=== PATIENT | male | born 1995 | race Caucasian/White ===

== ENCOUNTER 2016-10-14 23:30 | Emergency (ER) | payer BC, OTHER ==
[~2016-10-14] VITALS: Ht 182.9 cm; Wt 70.0 kg
[2016-10-14 23:31] VITALS: BP 106/66; PULSE 78; RESP 16; TEMP 98.6; O2SAT 99
[2016-10-15] MEDS ORDERED: PARO20TA2 PO (00:53)
[2016-10-15] MEDS ORDERED: DICL75TA PO (01:38)
[2016-10-15] MEDS ORDERED: AMOX500T PO (01:38)
--- NOTE | 2016-10-15 01:41 | PD ---
HPI Chief Complaint: Oral / Dental Pain or Problem Time Seen by Provider: 01:38 Travel History International Travel<30 days: No Contact w/Intl Traveler<30days: No Traveled to known affect area: No History of Present Illness HPI 21-year-old white male presents emergency Department with complaints of dental pain over last 2 weeks. He states that the pain has gotten worse over last few days. The pain is localized to his left lower mandible. He's had problems with his teeth in the past. He is waiting to have dentures. He denies any fever chills. No difficulty swallowing. No shortness of breath or wheezing. Pain is moderate. Worse with chewing. PFSH Past Medical History Medical History: Denies Significant Hx Diminished Hearing: No Tetanus Vaccination: Unknown Influenza Vaccination: No Past Surgical History Surgical History: No Previous Surgery Social History Alcohol Use: No Tobacco Use: No Substance Use: No Allergies-Medications (Allergen,Severity, Reaction): Coded Allergies: No Known Allergies (Unverified , 10/15/16) Reported Meds & Prescriptions Reported Meds & Active Scripts Active Diclofenac Sodium DR (Diclofenac Sodium) 75 Mg Tabdr 75 Mg PO BID Amoxicillin 500 Mg Tab 1,000 Mg PO BID Reported Paroxetine (Paroxetine HCl) 20 Mg Tab 20 Mg PO DAILY Review of Systems Except as stated in HPI: all other systems reviewed are Neg General / Constitutional: No: Fever, Chills Eyes: No: Diploplia, Blurred Vision HENT: Positive: Dental Difficulties, No: Headaches, Vertigo, Earache Cardiovascular: No: Chest Pain or Discomfort, Palpitations Respiratory: No: Cough, Shortness of Breath Gastrointestinal: No: Nausea, Vomiting Physical Exam Narrative GENERAL: Well-developed, well-nourished in no acute distress. Nontoxic appearing. HEAD: Normocephalic, atraumatic. EYES: Pupils equal round and reactive. Extraocular motions intact. No scleral icterus. No injection or drainage. ENT: TMs clear without erythema. The external auditory canals clear. Nose: clear . Posterior pharynx is pink and moist. No tonsillar edema or exudate. Uvula midline. Airway patent. The patient has diffuse periodontal disease. He has multiple decayed teeth the gumline. There is some gingival erythema and edema and pain to the left lower mandible. NECK: Trachea midline.Supple, nontender, moves head freely. No central bony tenderness or spasm. CARDIOVASCULAR: Regular rate and rhythm without murmurs, gallops, or rubs. RESPIRATORY: Clear to auscultation. Breath sounds equal bilaterally. No wheezes , rales, or rhonchi. GASTROINTESTINAL: Abdomen soft, non-tender, nondistended. No hepato-splenomegaly , or palpable masses. No guarding. EXTREMITIES: No clubbing, cyanosis, or edema. No joint tenderness, effusion, or edema noted. BACK: Nontender without deformity or crepitance. No flank tenderness. Data Data Last Documented VS Vital Signs Date Time Temp Pulse Resp B/P Pulse Ox O2 Delivery O2 Flow Rate FiO2 10/15/16 00:54 16 10/14/16 23:31 98.6 78 106/66 99 Orders Amoxicillin (Trimox) (10/15/16 01:45) Acetamin-Hydrocod 325-5 Mg (Holcomb 5-325 (10/15/16 01:45) MDM Medical Decision Making Medical Screen Exam Complete: Yes Emergency Medical Condition: Yes Medical Record Reviewed: Yes Differential Diagnosis MDM: Moderate Differential diagnoses: Dental abscess, dental caries, osteitis, cellulitis Narrative Course This is dental abscess, dental caries Patient is given Lortab 5 mg and amoxicillin 1 g by mouth here in the ER. Diagnosis Primary Impression: Dental abscess Additional Impression: Dental caries Patient Instructions: Narcotic given in the ED, General Instructions Additional Instructions: Rest. Saltwater gargles. Parkman oil on cotton balls. Amoxicillin and diclofenac follow-up with a dentist as soon as possible. And return to the ER if any problems. Med/Other Pt SpecificInfo: Prescription(s) given Scripts Diclofenac Sodium DR 75 Mg Tabdr75 Mg PO BID #20 TAB Prov:Renetta Calle MD 10/15/16 Amoxicillin 500 Mg Tab1,000 Mg PO BID #40 TAB Prov:Renetta Calle MD 10/15/16 Disposition: DISCHARGE HOME Condition: Stable Chele Antony Oct 15, 2016 01:40
[2016-10-15] MEDS ORDERED: AMOXICILLIN (TRIHYDRATE) 500 MG CAP PO ONE (01:45)
[2016-10-15] MEDS ORDERED: ACETAMINOPHEN/HYDROcodone 325 MG/5 MG TAB PO ONE (01:45)
== END 2016-10-15 02:54 | disposition home or self-care (01) ==
LOC: NEPK 23:30
DX: K04.7 Periapical abscess without sinus (principal); K02.9 Dental caries, unspecified
CPT/HCPCS: 99282

== ENCOUNTER 2016-10-26 01:02 | Emergency (ER) | payer BC, OTHER ==
[~2016-10-26] VITALS: Ht 182.9 cm; Wt 63.0 kg
[~2016-10-26 01:02] MED LIST: AMOX500T PO; DICL75TA PO; PARO20TA2 PO
[2016-10-26 01:05] VITALS: BP 102/60; PULSE 82; RESP 16; TEMP 98.1; O2SAT 100
[2016-10-26] MEDS ORDERED: PARO20TA2 PO (01:19)
--- NOTE | 2016-10-26 01:19 | PD ---
HPI Chief Complaint: Medication Refill Request Time Seen by Provider: 01:14 Travel History International Travel<30 days: No Contact w/Intl Traveler<30days: No Traveled to known affect area: No History of Present Illness HPI 21-year-old healthy male with history depression here with complaint of medication refill. Patient takes paroxetine 20 mg daily. He has been on this for 2 years with good effect. Unfortunately he ran out of this approximately 3 days ago. Patient is asymptomatic, requesting medication refill. PFSH Past Medical History Depression: Yes Diminished Hearing: No Social History Alcohol Use: No Tobacco Use: No Substance Use: No Allergies-Medications (Allergen,Severity, Reaction): Coded Allergies: No Known Allergies (Unverified , 10/15/16) Reported Meds & Prescriptions Reported Meds & Active Scripts Active Diclofenac Sodium DR (Diclofenac Sodium) 75 Mg Tabdr 75 Mg PO BID Amoxicillin 500 Mg Tab 1,000 Mg PO BID Reported Paroxetine (Paroxetine HCl) 20 Mg Tab 20 Mg PO DAILY Review of Systems General / Constitutional: No: Fever Psychiatric: Positive: Depression Physical Exam Narrative GENERAL: Well Appearing male in no acute distress SKIN: Focused skin assessment warm/dry. HEAD: Normocephalic. CARDIOVASCULAR: Regular rate and rhythm. RESPIRATORY: No accessory muscle use. MUSCULOSKELETAL: Normal gait NEUROLOGICAL: Awake and alert. Normal speech. PSYCHIATRIC: Appropriate mood and affect; insight and judgment normal. Data Data Last Documented VS Vital Signs Date Time Temp Pulse Resp B/P Pulse Ox O2 Delivery O2 Flow Rate FiO2 10/26/16 01:05 98.1 82 16 102/60 100 Room Air MDM Medical Decision Making Medical Screen Exam Complete: Yes Emergency Medical Condition: Yes Medical Record Reviewed: Yes Differential Diagnosis 21-year-old male with history of depression on paroxetine 20 mg daily off of this 3 days here with medication refill request. Patient is otherwise asymptomatic. Narrative Course Medication refilled, referred to outpatient primary Diagnosis Primary Impression: Depression Qualified Code: F32.9 - Depression, unspecified depression type Additional Impression: Medication refill Referrals: [facility] call for appointment Additional Instructions: Medication as prescribed Med/Other Pt SpecificInfo: Prescription(s) given Scripts Paroxetine 20 Mg Tab20 Mg PO DAILY #30 TAB Ref 0 Prov:Jing Egan MD 10/26/16 Disposition: 01 DISCHARGE HOME Condition: Stable Jing Egan N. MD Oct 26, 2016 01:19
== END 2016-10-26 01:32 | disposition home or self-care (01) ==
LOC: NEPD 01:02
DX: F32.9 Major depressive disorder, single episode, unspecified (principal); Z76.0 Encounter for issue of repeat prescription
CPT/HCPCS: 99281

== ENCOUNTER 2017-01-16 02:09 | Emergency (ER) | payer BC, OTHER ==
[~2017-01-16 02:09] MED LIST changes: -AMOX500T PO
[2017-01-16 02:13] VITALS: BP 102/66; PULSE 75; RESP 16; TEMP 98; O2SAT 100
[2017-01-16] MEDS ORDERED: PARO20TA2 PO (03:17)
--- NOTE | 2017-01-16 03:21 | PD ---
HPI Chief Complaint: Medication Refill Request Time Seen by Provider: 03:18 Travel History International Travel<30 days: No Contact w/Intl Traveler<30days: No Traveled to known affect area: No History of Present Illness HPI 21-year-old white male presents to emergency department requesting a refill of his paroxetine. He states that he ran out this past week. He has been on this for quite some time. He denies any suicidal homicidal ideation. He does not have an appointment to see [employer] operation until the end of the month. PENDING SALE TO [facility] Past Medical History Depression: Yes Diminished Hearing: No Past Surgical History Other Surgery: Yes (mouth reconstruction) Social History Alcohol Use: No Tobacco Use: Yes (ppd) Substance Use: No Allergies-Medications (Allergen,Severity, Reaction): Coded Allergies: No Known Allergies (Unverified , 10/26/16) Reported Meds & Prescriptions Reported Meds & Active Scripts Active Paroxetine (Paroxetine HCl) 20 Mg Tab 20 Mg PO DAILY Diclofenac Sodium DR (Diclofenac Sodium) 75 Mg Tabdr 75 Mg PO BID Review of Systems Except as stated in HPI: all other systems reviewed are Neg Physical Exam Narrative GENERAL: This is a well-nourished, well-developed patient, in no apparent distress. SKIN: No rashes, ecchymoses or lesions. Warm and dry. HEAD: Atraumatic. Normocephalic. EYES: PERRL, EOMI, no discharge or injection. No scleral icterus. EARS: Clear NOSE: Nasal turbinates appear normal. THROAT: Mucosa pink and moist. Airway patent. NECK: Trachea midline. supple, moves head freely. LUNGS: Clear to auscultation. CV: Regular in rhythm. ABDOMEN: Soft nontender. EXT: No clubbing cyanosis or edema. Data Data Last Documented VS Vital Signs Date Time Temp Pulse Resp B/P Pulse Ox O2 Delivery O2 Flow Rate FiO2 01/16/17 02:13 98.0 75 16 102/66 100 Room Air MDM Medical Decision Making Medical Screen Exam Complete: Yes Emergency Medical Condition: Yes Medical Record Reviewed: Yes Differential Diagnosis Differential diagnoses: Med refill, depression, anxiety Narrative Course This is medication refill, depression Diagnosis Primary Impression: Medication refill Additional Impression: depression Patient Instructions: General Instructions Additional Instructions: Rest. Medications as directed. Follow up with [facility] for further refills. Return to the ER for emergencies. Med/Other Pt SpecificInfo: Prescription(s) given Scripts Paroxetine 20 Mg Tab20 Mg PO DAILY #30 TAB Ref 0 Prov:Delfin Fitzgerald MD 01/16/17 Disposition: 01 DISCHARGE HOME Condition: Chele Cooper Jan 16, 2017 03:21
== END 2017-01-16 03:53 | disposition home or self-care (01) ==
LOC: NEPD 02:09
DX: F32.9 Major depressive disorder, single episode, unspecified (principal); F17.210 Nicotine dependence, cigarettes, uncomplicated; Z76.0 Encounter for issue of repeat prescription
CPT/HCPCS: 99281

== ENCOUNTER 2017-03-22 21:20 | Emergency (ER) | payer BC, OTHER ==
[~2017-03-22] VITALS: Ht 182.9 cm; Wt 59.4 kg
[2017-03-22 21:22] VITALS: BP 114/70; PULSE 81; RESP 18; TEMP 98.6; O2SAT 99
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
[2017-03-22] MEDS ORDERED: MAGICADU2 SWISH-SPIT (21:44)
[2017-03-22] MEDS ORDERED: PENI500T PO (21:44)
[2017-03-22] MEDS ORDERED: IBUP800T23 PO (21:44)
[2017-03-22] MEDS ORDERED: MAPA500T13 PO (21:44)
[2017-03-22] MEDS ORDERED: IBUPROFEN 800 MG TAB PO ONE (21:45)
[2017-03-22] MEDS ORDERED: NYSTAT/DIPHENHY/LIDO MOUTHWASH (Adult) 120ML SWISH-SPIT ONE (21:45)
[2017-03-22] MEDS ORDERED: PENICILLIN V POTASSIUM 500 MG TAB PO ONE (21:45)
[2017-03-22] MEDS ORDERED: ACETAMINOPHEN 500 MG CPLT PO ONE (21:45)
[2017-03-22] MEDS ORDERED: PARO1TAB72 PO (22:23)
== END 2017-03-22 22:24 | disposition home or self-care (01) ==
LOC: PHEFT 21:20
DX: K04.7 Periapical abscess without sinus (principal); K02.9 Dental caries, unspecified; F32.9 Major depressive disorder, single episode, unspecified; F17.210 Nicotine dependence, cigarettes, uncomplicated
CPT/HCPCS: 99284